=== PATIENT | male | born 1945 | race Caucasian/White ===

== ENCOUNTER 2025-01-02 10:32 | Emergency (ER) | payer BC, MEDICARE, SELFPAY ==
[2025-01-02 10:37] VITALS: BP 140/67; PULSE 57; RESP 13; TEMP 36.4; O2SAT 98; BMI 25.7
--- NOTE | 2025-01-02 10:40 | DI.RAD.S_ITS ---
PROCEDURE: XR ANKLE RT MIN 3V INDICATIONS: ankle pain TECHNIQUE: 3 views of the ankle were acquired. COMPARISON: None. FINDINGS: Bones: No acute fractures or dislocations. Ankle mortise is normally aligned. No suspicious bony lesions. Severe joint space narrowing at the mortise joint with subchondral cystic changes and marginal osteophytes. Posterior and plantar calcaneal enthesophytes. Soft tissues: No suspicious soft tissue calcifications. IMPRESSION: No acute bony abnormality. Severe mortise joint osteoarthrosis. Approved by: Dmitry Law M.D. on 01/02/2025 at 12:03
--- NOTE | 2025-01-02 11:05 | ED_ITS ---
<Statement entered by Erich Mohan DO - 01/02/25 13:24> Dr. Mohan: I was immediately available in the department for consultation. I did not actually see the patient. HPI - Extremity Problem General Chief complaint: Extremity Problem,Nontraumatic Stated complaint: Right ankle pain x 2 weeks Time Seen by Provider: 01/02/25 11:05 Source: patient Mode of arrival: Ambulatory History of Present Illness HPI Narrative: Stanley Valdivia, is a very pleasant 79-year-old male with no reported past medical history who presents to the emergency department with his for right ankle pain x6 weeks. Patient's brought him to the ER. They are currently traveling, living on the boat, they are from [place]. About 6 weeks ago he started having pain and swelling of the right ankle but denies any inciting injury. States that a doctor in [place] was giving him hyaluronic acid injections into the lateral ankle which was helping. However the right ankle pain is getting worse and they are walking on the dog every day and he is having difficulty. He takes ibuprofen which helps and he also has been using a right ankle brace which is helping as well. He does have a history of a tibia fracture many many years ago, and he does have focal pitting edema over this prior fracture but denies any pain. No redness, increased warmth or rashes on the lower leg. No calf tenderness or swelling. No history of DVT. No numbness tingling or weakness. Related Data Allergies Allergy/AdvReac Type Severity Reaction Status Date / Time No Known Drug Allergies Allergy Verified 01/02/25 10:36 Review of Systems Review of Systems ROS Unobtainable: All systems reviewed & are unremarkable except as noted in HPI and below Patient History Smoking Status: Unknown if ever smoked Exam Narrative Exam Narrative: GENERAL: 79 year old patient appears stated age. Well-developed patient, in no acute distress. HEAD: Atraumatic. Normocephalic. NECK: Trachea midline. Cervical ROM intact. CARDIOVASCULAR: Regular rate RESPIRATORY: ?Nonlabored respirations. ?Speaking in clear, full sentences. EXTREMITIES: 1+ pitting edema of right lower extremity, around the ankle with lines from ankle brace evident. There is also a focal area of pitting edema on the anterior right may. No focal bony tenderness of the medial or lateral malleolus. No deformities of the right foot or ankle. Strong DP and PT pulses bilaterally and brisk capillary refill in the toes. Sensation intact to light touch in the dorsal and plantar aspect of the feet. Patient is able to dorsiflex and plantar flex both ankles. On the anterior your dorsal right midfoot there is slight superficial abrasion/scabs reported to be from his ankle brace. NEURO: AOx3. ?Clear speech. ?Moves all 4 extremities appropriately. SKIN: No rash or erythema of visible areas. Warm, dry. Initial Vital Signs Initial Vital Signs: Vital Signs Temperature 97.5 F L 01/02/25 10:37 Pulse Rate 57 L 01/02/25 10:37 Respiratory Rate 13 01/02/25 10:37 Blood Pressure 140/67 01/02/25 10:37 Pulse Oximetry 98 01/02/25 10:37 Oxygen Delivery Method Room Air 01/02/25 10:37 Course Orders Ordered: ED Orders 01/02/25 10:40 XR ankle RT min 3V Stat 01/02/25 11:14 [facility] venous low extrem rt Stat Vital Signs Vital signs: Vital Signs - 8 hr 01/02/25 10:37 Temperature 97.5 F L Pulse Rate 57 L Respiratory Rate 13 Blood Pressure 140/67 Pulse Oximetry 98 Oxygen Delivery Method Room Air MDM - Extremity (Nontraumatic) Medical Records Medical records narrative: None available for review, patient is from [place]. Imaging Data Right Ankle XR: Radiologist's Impression: PROCEDURE: XR ANKLE RT MIN 3V INDICATIONS: ankle pain TECHNIQUE: 3 views of the ankle were acquired. COMPARISON: None. FINDINGS: Bones: No acute fractures or dislocations. Ankle mortise is normally aligned. No suspicious bony lesions. Severe joint space narrowing at the mortise joint with subchondral cystic changes and marginal osteophytes. Posterior and plantar calcaneal enthesophytes. Soft tissues: No suspicious soft tissue calcifications. IMPRESSION: No acute bony abnormality. Severe mortise joint osteoarthrosis. Approved by: Dmitry Law M.D. on 01/02/2025 at 12:03 RLE Venous US: Radiologist's Impression: PROCEDURE: US PERIP VENOUS LOW EXTREM RT INDICATIONS: RLE swelling x 6 weeks TECHNIQUE: Real-time imaging, as well as color and pulse Doppler interrogation, were performed of the lower extremity deep veins from the inguinal ligament to the popliteal fossa, with documentation of the visualized calf veins. COMPARISON: None. FINDINGS: The common femoral, femoral, popliteal, and the visualized calf veins are normally compressible, and free of intraluminal thrombus. Color and pulse Doppler demonstrate normal phasic intraluminal flow. There is normal augmentation response to distal compression maneuver. IMPRESSION: No findings of lower extremity deep venous thrombosis. Approved by: Dmitry Law M.D. on 01/02/2025 at 12:29 MDM Narrative Medical decision making narrative: 79-year-old male with no reported past medical history who presents to the emergency department with his for right ankle pain x6 weeks. Differential diagnosis includes but is not limited to right ankle arthritis, sprain, strain, fracture, dislocation, gout, DVT, venous insufficiency, cellulitis, etc. On exam the patient is in no acute distress, nontoxic-appearing, all vital signs within normal limits. He does have pitting edema of the right lower extremity primarily from the right ankle however he also has a focal area of pitting edema in the anterior right may. Bilateral feet are neurovascularly intact and there is no focal bony tenderness on the ankle. X-ray obtained in triage, we will also obtain right lower extremity venous ultrasound given edema in the setting of recent travel with no inciting injury. Patient denies anything for pain at this time. Right ankle x-ray reveals severe mortise joint osteoarthrosis which is likely the cause of the patient's pain. Ultrasound is negative for DVT. After shared decision-making with the patient, we will provide with orthopedic boot today to assist with pain and ambulation, recommended follow up with [facility] for further management. Discussed supportive care including rice therapy, compression socks, ibuprofen/Tylenol, Voltaren gel/cream. Patient verbalized understanding all information is agreeable to the plan. All questions answered. Imaging results printed and provided to patient/. He is ambulatory with boot and stable for discharge home. Discharge Plan Departure Patient Disposition: Home Clinical Impression: Osteoarthritis of ankle, right Qualifiers: Osteoarthritis type: unspecified Qualified Code(s): M19.071 - Primary osteoarthritis, right ankle and foot Ankle pain, right Qualifiers: Chronicity: acute Qualified Code(s): M25.571 - Pain in right ankle and joints of right foot Instructions: DI for Ankle Pain Activity Restrictions/Additional Instructions: Dear Mr. Iglesias, Thank you for coming to the emergency department. Today you were evaluated for right ankle pain and your x-ray revealed severe right ankle osteoarthritis. Your ultrasound revealed no blood clots or vein problems. You have been provided with a orthopedic boot, but you are welcome to use any right ankle brace or boot that is most comfortable for you. Please follow up with [facility] for further management. Please use RICE therapy for your pain in addition to ibuprofen/acetaminophen. Rest the painful area. Ice the area of pain/swelling for at least 15 minutes, 4x a day. Compress the area of swelling using compression socks and the orthopedic boot or an ankle brace. Elevate the painful or swollen extremity by supporting it above the level of the heart with pillows when sitting or laying. Please take Ibuprofen (Motrin/Advil) or Acetaminophen (Tylenol) for pain. These are available over the counter. You may take Ibuprofen 600 mg every 8 hours with food for pain. You may also take Acetaminophen 650 mg every 4-6 hours for pain. Do not exceed 3000 mg of Tylenol a day as this can cause liver damage. Do not drink alcohol with either of these medications. Please follow up with your primary care doctor within the next 2-3 days for ER follow-up. (If you do not have a PCP you can call [phone]. ?to schedule an appointment with an [facility] Primary Care Provider) IF YOU DEVELOP ANY NEW OR WORSENING SYMPTOMS, RETURN TO THE ER! Please read the attached instructions, they highlight more specific treatments and interventions for you at home. Thank you for letting me participate in your care, Alicia Hitchcock PA-C Referrals: [facility] [Provider Group] Thomas Cesar MD [Physician, Orthopedic Surgery] Referral Note: severe R ankle arthritis Stand Alone Forms: Patient Portal/API
--- NOTE | 2025-01-02 11:14 | DI.US.S_ITS ---
PROCEDURE: US PERIPH VENOUS LOW EXTREM RT INDICATIONS: RLE swelling x 6 weeks TECHNIQUE: Real-time imaging, as well as color and pulse Doppler interrogation, were performed of the lower extremity deep veins from the inguinal ligament to the popliteal fossa, with documentation of the visualized calf veins. COMPARISON: None. FINDINGS: The common femoral, femoral, popliteal, and the visualized calf veins are normally compressible, and free of intraluminal thrombus. Color and pulse Doppler demonstrate normal phasic intraluminal flow. There is normal augmentation response to distal compression maneuver. IMPRESSION: No findings of lower extremity deep venous thrombosis. Approved by: Dmitry Law M.D. on 01/02/2025 at 12:29
== END 2025-01-02 12:55 | disposition home or self-care (01) ==
PROVIDERS: Emergency Provider Physician Assistant
DX: M19.071 Primary osteoarthritis, right ankle and foot (principal); M25.571 Pain in right ankle and joints of right foot
CPT/HCPCS: 73610; 93971; 99281; 99283